=== PATIENT | male | born 1995 | race Caucasian/White ===

== ENCOUNTER 2022-11-01 16:11 | Outpatient (CLI) | payer BC, SELFPAY ==
[2022-11-04 10:21] LABS: Chloride* 104 mmol/L (96-114); Potassium* 4.4 mmol/L (3.6-5.1); Sodium* 143 mmol/L (135-149)
[2022-11-04 10:23] LABS: Cholesterol* 207 mg/dL (90-199)
[2022-11-04 10:24] LABS: Blood Urea Nitrogen* 21 mg/dL (5-24); Calcium* 9.5 mg/dL (8.4-10.6); Carbon Dioxide* 28 mmol/L (20-32); Creatinine* 0.9 mg/dL (0.5-1.5); Estimated Glomerular Filt Rate 120 ml/min; Glucose* 120 mg/dL (60-115); Triglycerides* 208 mg/dL (40-149)
[2022-11-04 10:25] LABS: HDL Cholesterol* 35 mg/dL (>=40); LDL Cholesterol Calculated 130 mg/dL (<100)
== END 2022-11-01 16:12 | disposition home or self-care (01) ==
LOC: NFLDREF 11-04 09:55
PROVIDERS: PCP Family Medicine; Visit Provider Family Medicine
DX: E10.9 Type 1 diabetes mellitus without complications (principal); Z13.6 Encounter for screening for cardiovascular disorders
CPT/HCPCS: 80048; 80061

== ENCOUNTER 2022-11-06 16:45 | Outpatient (CLI) | payer BC, SELFPAY ==
--- NOTE | 2022-11-06 17:00 | CRLHL7_ITS ---
For Patients: As a result of the Century Cures Act, medical imaging exams and procedure reports are released immediately into your electronic medical record. You may view this report before your referring provider. If you have questions, please contact your health care provider. INDICATION: undescended testicle COMPARISON: none TECHNIQUE: More scale imaging was performed of the scrotum. In addition color Doppler and spectral Doppler analysis was performed of the testes. FINDINGS: Left testicle demonstrates normal arterial and venous blood flow on color Doppler and spectral Doppler analysis. There is flow within the right testicle although it is diminished compared to the left testicle. The right testicular is smaller than the left testicle. There is no evidence of a suspicious mass or area of inflammation. The right testis measures 3.5 x 1.4 x 2.4 cm in size and the left testis measures 5.1 x 2.6 x 3.4 cm. The right epididymis is smaller than the normal left epididymis. There is no evidence of a hydrocele or varicocele. IMPRESSION: Undescended right testicle. The right testicle is smaller and has less blood flow compared to the normal left testicle. However, blood flow is present within the right testicle and there is no evidence of torsion. No testicular mass. Dictated by Robel Henderson MD @ 11/07/2022 9:40:22 AM (Electronically Signed)
== END 2022-11-06 16:46 | disposition home or self-care (01) ==
LOC: US 16:46
PROVIDERS: PCP Family Medicine; Visit Provider Family Medicine
DX: Q53.10 Unspecified undescended testicle, unilateral (principal)
CPT/HCPCS: 76870; 93976

== ENCOUNTER 2023-10-17 15:48 | Outpatient (CLI) | payer BC, SELFPAY ==
--- OUTSIDE RECORDS SUMMARY | 2023-10-17 15:53 | XMS_ITS | Clinical Summary ---
Author Name Unknown Organization [facility] Address [address] [place] [address] Care Team Providers Care High School Science Tutor Name Role Phone No Ref-Primary, Physician Primary Care Provider Allergies Active Allergy Reactions Criticality Noted Date Comments Shellfish Allergy 04/26/2016 Other reaction(s): Edema Medications No known medications Social History Tobacco Use Types Packs/Day Years Used Date Smoking Tobacco: Former Smokeless Tobacco: Never Tobacco Cessation:Counseling Given: Yes Sex and Gender Information Value Date Recorded Sex Assigned at Not on file Gender Identity Not on file Sexual Orientation Not on file Last Filed Vital Signs Vital Sign Reading Time Taken Comments Blood Pressure 116/70 04/11/2020 8:59 AM CDT Pulse - - Temperature - - Respiratory Rate - - Oxygen Saturation - - Inhaled Oxygen Concentration - - Weight 105.2 kg (232 lb) 04/11/2020 8:59 AM CDT Height 165.1 cm (5' 5) 04/11/2020 8:59 AM CDT Body Mass Index 38.61 04/11/2020 8:59 AM CDT Plan of Treatment Not on file Care Teams High School Science Tutor Relationship Specialty Start Date End Date No Ref-Primary, Physician PCP - General 04/11/20
--- OUTSIDE RECORDS SUMMARY | 2023-10-17 15:53 | XMS_ITS | Clinical Summary ---
Author Name Unknown Organization [facility] Address [place], [place] [address] Care Team Providers Care Tapping Machine Operator Name Role Phone Pcp, No Primary Care Provider Unavailabl e Allergies Active Allergy Reactions Criticality Noted Date Comments Shellfish Containing Products Edema 2015 Medications Medication Sig Dispensed Refills Start Date End Date Status fluticasone (50 mcg per actuation) nasal solution (FLONASE)Indications :Allergic rhinitis due to pollen, unspecified rhinitis seasonality Inhale 2 Sprays into both nostrils once daily. 1 Bottle 1 01/27/2017 Active Novofine 32 32 gauge x 1/4 1 EACH XX DAILY 0 08/14/2021 Active Dexcom G6 Pay Station Collector for continuous blood glucose monitor (CGM) USE DIRECTED 0 08/31/2021 Active Dexcom G6 Sensor for continuous blood glucose monitor (CGM)Indications:Typ e 1 diabetes mellitus without complications (HC) To be used to read blood sugars, follow manager security directions. 9 Each 0 03/05/2022 Active Dexcom G6 Transmitter for continuous blood glucose monitor (CGM)Indications:Typ e 1 diabetes mellitus without complications (HC) To be used to read blood sugars, follow manager security directions. 1 Each 0 03/05/2022 Active insulin lispro, U-100, (HumaLOG KwikPen Insulin) 100 unit/mL inpn penIndications:Type 1 diabetes mellitus without complications (HC) Inject 1-66 units subcutaneous 3 times daily before meals. Up to 66 units per day for carbohydrate intake. Product desired: HUMALOG KWIKPEN 6 mL 3 03/05/2022 Active Semglee,insulin glarg-yfgn,Pen 100 unit/mL (3 mL) penIndications:Type 1 diabetes mellitus without complications (HC) Inject 24 units subcutaneous before bedtime. 0 03/05/2022 Active Active Problems No known active problems Immunizations Name Administration Dates Next Due Influenza, IIV4 07/31/2016 Tdap 09/29/2015 Social History Tobacco Use Types Packs/Day Years Used Date Smoking Tobacco: Former Cigarettes Q uit: 07/23/2016 Smokeless Tobacco: Former Tobacco Cessation:Ready to Q uit: No; Counseling Given: Yes Comments:1 cigarette per month Alcohol Use Standard Drinks/Week Comments Yes 2 (1 standard drink = 0.6 oz pur e alcohol) occasional PHQ-2 Answer Date Recorded PHQ-2 TOTAL SCORE 0 03/05/2022 Social Connections Answer Date Recorded Frequency of Communication with Friends and Fami ly Not on file 03/05/2022 Sex and Gender Information Value Date Recorded Sex Assigned at Not on file Gender Identity Not on file Sexual Orientation Not on file Obstetrics History Last Filed Vital Signs Vital Sign Reading Time Taken Comments Blood Pressure 112/76 03/05/2022 10:31 AM CDT Pulse 80 03/05/2022 10:31 AM CDT Temperature 36.8 ??C (98.2 ??F) 01/27/2017 5:34 PM CD T Respiratory Rate 20 10/27/2015 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 Oxygen Saturation 99% 03/05/2022 10:31 AM CDT Inhaled Oxygen Concentration - - Weight 94.3 kg (208 lb) 03/05/2022 10:31 AM CDT Height 164.9 cm (5' 4.92) 03/05/2022 10:31 AM C DT Body Mass Index 34.7 03/05/2022 10:31 AM CDT Plan of Treatment Health Maintenance Due Date Last Done Comments COVID-19 vaccine series (#1) 05/14/1995 HIV for age 15-65 2009 Hepatitis C screening for age 18-79 2012 BMI (ht and wt on same day) for age 18+ 03/05/2023 03/05/2022, 09/13/2016, 09/06/2016, Additional history exists Depression screening for age 12+ 03/05/2023 03/05/2022, 09/06/2016 Influenza for age 9-49 05/23/2023 07/31/2016 Tetanus booster 09/29/2025 09/29/2015 Tdap Completed 09/29/2015 Pneumococcal series for age 6-64 Aged Out No longer eligible based on patient's age to complete this topic Care Teams Tapping Machine Operator Relationship Specialty Start Date End Date Pcp, No . PCP - General 07/31/16
--- OUTSIDE RECORDS SUMMARY | 2023-10-17 15:53 | XMS_ITS | Referral Summary ---
Author Name Unknown Organization [facility] Address [address] [place] [id number] Care Team Providers Care Boilers And Pressure Vessels Inspector Name Role Phone No Ref-Primary, Physician Primary [...] of Treatment Not on file Care Teams Boilers And Pressure Vessels Inspector Relationship Specialty Start Date End Date No Ref-Primary, Physician PCP - General 04/11/20
== END 2023-10-17 15:49 | disposition home or self-care (01) ==
PROVIDERS: PCP Family Medicine; Visit Provider Family Medicine
DX: R79.89 Other specified abnormal findings of blood chemistry (principal); E10.9 Type 1 diabetes mellitus without complications; R53.83 Other fatigue; Z79.4 Long term (current) use of insulin
CPT/HCPCS: 80048; 84403; 84443

== ENCOUNTER 2024-03-14 13:42 | Emergency (ER) | payer BC, SELFPAY ==
[2024-03-14 13:46] VITALS: BP 155/81; PULSE 87; RESP 18; TEMP 36.2; O2SAT 98; BMI 36.9
--- NOTE | 2024-03-14 14:19 | ED_ITS ---
HPI - Back Pain/Injury General Chief Complaint: Back Injury/Pain Stated Complaint: back pain Time Seen by Provider: 03/14/24 13:48 History of Present Illness HPI Narrative: This 28-year-old male comes in reporting low back pain over the past month. He has been going to a chiropractor without much relief. He states that he was feeling better several days ago and became more active and now his pain is much worse. He states the pain is localized in his low back and occasionally radia melania down to his right knee. He states that he feels best if he is laying on his side. He does not report any specific injury event or significant strenuous activity that triggered this. He went to urgent care earlier and an x-ray was done with negative results. He comes in here because nothing else was done to help him with his symptoms at that visit. He states that he has taken some Tylenol without any relief. Related Data Home Medications ?Medication ?Instructions ?Recorded ?Confirmed insulin pump cartridge,automated #1 ea 04/01/22 03/14/24 dose,BT with controller subcutaneous (Omnipod 5 G6 Intro Kit (Gen 5) subcutaneous cartridge with controller) Previous Rx's ?Medication ?Instructions ?Recorded blood-glucose transmitter (Dexcom #1 ea 11/01/22 G6 Transmitter device) insulin pump cart,automated,BT #45 ea 05/02/23 (Omnipod 5 G6 Pods (Gen 5) subcutaneous cartridge) insulin lispro 100 unit/mL 70 unit (0.7 mL) subcut QDAY #70 mL 10/09/23 subcutaneous solution (Humalog U-100 Insulin) blood-glucose sensor (Dexcom G6 #9 ea 10/14/23 Sensor device) testosterone 1.62 % (20.25 mg/1.25 1 packet transdermal QDAY #37.5 10/21/23 gram) transdermal gel packet grams insulin lispro 100 unit/mL 70 unit (0.7 mL) subcut QDAY #45 mL 02/10/24 subcutaneous pen (Humalog KwikPen (U-100) Insulin) cyclobenzaprine 10 mg tablet 10 mg PO TID #15 tabs 03/14/24 ketorolac 10 mg tablet 10 mg PO Q8H 5 days #15 tabs 03/14/24 methylprednisolone 4 mg tablets in See Rx Instructions PO .COMPLEX 03/14/24 a dose pack (Medrol (Shaka)) #21 ea Allergies Allergy/AdvReac Type Severity Reaction Status Date / Time No Known Drug Allergies Allergy Verified 03/14/24 13:50 Review of Systems Status of ROS: Reports: 10 or more systems reviewed and unremarkable except as noted in History and below Narrative: Constitutional: No fevers, no weight gain or loss. Eyes: No discharge. No vision changes. HENT: No congestion, no sore throat, no ear pain. Cardiovascular: No chest pain, no palpitations. Respiratory: No shortness of breath, no wheezes, no cough. Gastrointestinal: No abdominal pain, no vomiting, no diarrhea. Genitourinary: No dysuria, no hematuria. Musculoskeletal: Normal range of motion. Low back pain as described above. Skin: No rashes, no pruritis. Neurological: No dizziness, weakness, sensory change, speech change. Endo/Heme/Allergies: No bruising or bleeding. No polydipsia. Pysch: no suicidality, no anxiety, no insomnia. All other systems reviewed and are negative. [facility] Medical History (Updated 03/14/24 @ 14:24 by Mihai Saldana MD) Low serum testosterone level in male ?R79.89 - Other specified abnormal findings of blood chemistry (ICD-10) Undescended right testicle ?Q53.10 - Unspecified undescended testicle, unilateral (ICD-10) Type 1 diabetes mellitus (2020) ?E10.9 - Type 1 diabetes mellitus without complications (ICD-10) Surgical History History of tonsillectomy and adenoidectomy (2001) ?Z90.89 - Acquired absence of other organs (ICD-10) Family History Maternal Grandfather Stroke Heart disease Type 2 diabetes mellitus Social History Narrative: , 3 kids, natural gas pipeline, nonsmoker, social EtOH Smoking Status: Current some day smoker What tobacco products do you use: cigarettes Do you use any of these nicotine containing products: E-Cigarettes Second hand tobacco smoke exposure: No How often do you have a drink containing alcohol: monthly or less AUDIT-C Alcohol total score: 1 Non-prescribed substance use: denies use Little interest or pleasure in doing things: more than half the days Feeling down, depressed, or hopeless: several days Exam Narrative: Exam Narrative: Constitutional: Well-developed, well-nourished, no acute distress. HEENT: Normocephalic, atraumatic. Neck: Normal range of motion. Nontender. Supple. Heart: Intact distal pulses. Lungs: No chest discomfort. No wheezes, rhonchi, or rales. Abdomen: Nontender. Back: Diffuse pain in the low back without any midline tenderness. Extremities: Normal range of motion. No injury. Skin: Intact. No rash. Warm. No erythema or pallor. Neurologic: No altered sensation. No weakness. Alert and oriented. Psychiatric: No suicidality. No anxiety or depression. No insomnia. Nursing notes and vitals signs are reviewed. Const: Vital Signs, click to edit/add: Vital Signs - 24 hr 03/14/24 13:46 Temperature 97.1 F L Pulse Rate [Right Pulse Oximeter] 87 Respiratory Rate 18 Blood Pressure [Ri ght Upper Arm] 155/81 H Pulse Oximetry 98 Oxygen Delivery Me thod Room Air Course Vital Signs Vital signs: Initial Vital Signs Temperature 97.1 F L 03/14/24 13:46 Temperature Source Temporal Artery Scan 03/14/24 13:46 Pulse Rate 87 03/14/24 13:46 Pulse Rhythm Regular 03/14/24 13:46 Respiratory Rate 18 03/14/24 13:46 Blood Pressure 155/81 H 03/14/24 13:46 Blood Pressure Mean 105 03/14/24 13:46 Blood Pressure Position Sitting 03/14/24 13:46 Pulse Oximetry 98 03/14/24 13:46 Oxygen Delivery Method Room Air 03/14/24 13:46 Vital Signs Temperature 97.1 F L 03/14/24 13:46 Pulse Rate 87 03/14/24 13:46 Respiratory Rate 18 03/14/24 13:46 Blood Pressure 155/81 H 03/14/24 13:46 Pulse Oximetry 98 03/14/24 13:46 Oxygen Delivery Method Room Air 03/14/24 13:46 Temperature 97.1 F L 03/14/24 13:46 Pulse Rate 87 06/23/24 13:46 Respiratory Rate 18 03/14/24 13:46 Blood Pressure 155/81 H 03/14/24 13:46 Pulse Oximetry 98 03/14/24 13:46 Oxygen Delivery Method Room Air 03/14/24 13:46 MDM - Back Pain/Injury MDM Narrative Medical decision making narrative: This patient comes in with low back pain as described above. His symptoms are more typical of a myofascial strain. He does report some occasional pain down his right leg but this is not a persistent symptom. He did have an x-ray done earlier today which is negative. IA stated that CT imaging or MRI studies are not indicated at this time but if not improving or certainly if the pain begins persistently down 1 leg or the other he may need an MRI at that time a for more advanced treatment options. Today he received an intramuscular injection of Toradol. I did provide prescriptions also for Toradol, Flexeril, and Medrol Dosepak. Patient is encouraged to follow-up with spine clinic or physical therapy and is encouraged also to increase activity as tolerated. Discharge Plan Discharge Clinical Impression: Strain of lumbar region Patient Disposition: Home, Self-Care Condition: Stable Additional Instructions: Take medication as needed and indicated. Follow-up with spine clinic if not improving. Call [phone] for appointment. Prescriptions: New cyclobenzaprine 10 mg tablet 10 mg PO TID Qty: 15 0RF ketorolac 10 mg tablet 10 mg PO Q8H 5 Days Qty: 15 0RF methylprednisolone [Medrol (Shaka)] 4 mg tablets,dose pack See Rx Instructions .ROUTE .COMPLEX Qty: 21 0RF Rx Instructions: orally per package directions No Action (DME) Omnipod 5 G6 Intro Kit (Gen 5) Cartridge See Rx Instructions .ROUTE .MEDSUPPLY Qty: 1 Rx Instructions: As directed (DME) Dexcom G6 Transmitter Device See Rx Instructions .ROUTE .MEDSUPPLY Qty: 1 3RF Rx Instructions: Q3 months (DME) Omnipod 5 G6 Pods (Gen 5) Cartridge See Rx Instructions .ROUTE .MEDSUPPLY Qty: 45 3RF Rx Instructions: Change every 2 days insulin lispro [Humalog U-100 Insulin] 100 unit/mL solution 70 unit subcut QDAY Qty: 70 1RF Rx Instructions: 70 units daily per insulin pump (DME) Dexcom G6 Sensor Device See Rx Instructions .ROUTE .MEDSUPPLY Qty: 9 0RF Rx Instructions: Q10 days testosterone 1.62 % (20.25 mg/1.25 gram) gel in packet 1 packet transdermal QDAY Qty: 37.5 2RF Rx Instructions: apply to max area of ONE upper arem and shoulder insulin lispro [Humalog KwikPen Insulin] 100 unit/mL insulin pen 70 unit subcut QDAY Qty: 45 0RF Follow Up/Referrals: Robel Montgomery MD [Primary Care Provider] - Stand Alone Forms: MyHealth Info Instructions
[2024-03-14] MEDS: KETOROLAC 30 MG/ML inj IM (14:46)
--- OUTSIDE RECORDS SUMMARY | 2024-03-14 15:11 | XMS_ITS | Clinical Summary ---
Author Organization [facility] Address [address] [place] [id number] Care Team Providers Care Manager Beauty Name Role Phone No Ref-Primary, Physician Primary [...] of Treatment Not on file Care Teams Manager Beauty Relationship Specialty Start Date End Date No Ref-Primary, Physician PCP - General 04/11/20
--- OUTSIDE RECORDS SUMMARY | 2024-03-14 15:11 | XMS_ITS | Referral Summary ---
Author Organization [facility] Address [address] [place] [address] Care Team Providers Care Oil Sprayer Name Role Phone No Ref-Primary, Physician Primary [...] of Treatment Not on file Care Teams Oil Sprayer Relationship Specialty Start Date End Date No Ref-Primary, Physician PCP - General 04/11/20
--- OUTSIDE RECORDS SUMMARY | 2024-03-14 15:11 | XMS_ITS | Clinical Summary ---
Author Organization [facility] Address [place], [place] [address] Care Team Providers Care Assistance Coordinator Name Role Phone Pcp, No Primary Care [...] gauge x 1/4 1 EACH XX DAILY 08/14/2021 Active Dexcom G6 Masseur/Masseuse for continuous blood glucose monitor (CGM) USE DIRECTED 08/31/2021 Active Dexcom G6 Sensor for continuous blood glucose monitor (CGM)Indications:Typ e 1 diabetes mellitus without complications (HC) To be used to read blood sugars, follow mysql developer directions. 9 Each 03/05/2022 Active Dexcom G6 Transmitter for continuous blood glucose monitor (CGM)Indications:Typ e 1 diabetes mellitus without complications (HC) To be used to read blood sugars, follow mysql developer directions. 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 Oxygen Saturation 99% 03/05/2022 10:31 AM CDT Inhaled Oxygen Concentration - - Weight 94.3 kg (208 lb) 03/05/2022 10:31 AM CDT Height 164.9 cm (5' 4.92) 03/05/2022 10:31 AM C DT Body Mass Index 34.7 03/05/2022 10:31 AM CDT Plan of Treatment Health Maintenance Due Date Last Done Comments HIV for age 15-65 2009 Hepatitis C screening for age 18-79 2012 BMI (ht and wt on same day) for age 18+ 03/05/2023 03/05/2022, 09/13/2016, 09/06/2016, Additional history exists Depression screening for age 12+ 03/05/2023 03/05/2022, 09/06/2016 COVID-19 vaccine series ( season) 2023 Influenza for age 9-49 05/23/2024 07/31/2016 Tetanus booster 09/29/2025 09/29/2015 Tdap Completed 09/29/2015 Pneumococcal series for age 6-64 Aged Out No longer eligible based on patient's age to complete this topic Care Teams Assistance Coordinator Relationship Specialty Start Date End Date Pcp, No . PCP - General 07/31/16
== END 2024-03-14 15:31 | disposition home or self-care (01) ==
PROVIDERS: Emergency Provider Emergency Medicine Emergency Medical Services; PCP Family Medicine
DX: S39.012A Strain of muscle, fascia and tendon of lower back, initial encounter (principal)
CPT/HCPCS: 96372; 99283; 99284; J1885

== ENCOUNTER 2024-04-08 15:15 | Outpatient (RCR) | payer BC, SELFPAY ==
--- NOTE | 2024-03-16 13:10 | PT.OPE ---
PT [facility] Outpatient Eval [facility] Outpatient Eval Start: 03/16/24 08:49 Freq: Status: Active Protocol: Document 03/16/24 08:49 ENM (Rec: 03/16/24 11:03 ENM [id number]) E-signed By Esthela Reagan, DPT Physical Therapy Outpatient Evaluation Insurance Information Recert Due Date 06/14/24 Insurance Name Medicaid,Blue Cross/Blue Shield Insurance Information/Comments [place] through work secondary Medical Diagnosis low back pain, unspecified Treating Diagnosis low back pain, right leg pain, difficulty sitting, difficulty walking, impaired posture Referring MD [place] Subjective Subjective Patient presents to PT for evaluation of low back pain. Woke up a month ago with significant pain in their tailbone. Went to the chiropractor which helped some but pains have not gone away. It helped the pain to use a cut out cushion with sitting. This last weekend the pain was very significant 10/10. Sometimes in the morning has to walk very flexed due to pain. Sometimes the pain go up in the back or down the leg. Was given muscle relaxants which have helped some in his ability to walk. Has had to hold most of his weight on the left lately with standing. Xray was negative for significant findings. He denies any changes in bowel or bladder. Denies any pelvic floor issues. No known tailbone injury. When it started: a month ago Describes it as: down the leg is sharp, lower tail bone constant stabbing Timing: gets worse throughout the day depends on amount of sitting Location: tail bone Irritability: mod Severity: mod-high Pain Comments at its best: 5/10 at its worse: 10/10 easing: pillow, chiropractor aggravating: sitting for a while then standing, sometimes walking Current Work Status Production Trainer Occupation [employer] alot of driving, bending over and walking Objective Other/Pertinent Objective Lumbar AROM: FF: mid thigh before significant pain EXT: 25% limited normal pain SB: mid thigh B no pain ROT: 25% limited no pain Painful curve reversal Hip AROM: log roll and passive hip ROM no pain Strength: Hip extensors: L 4/5 R 4-/5 Hip abductors: 4/5 B Hip flexors: 4/5 B Knee extensors: 4/5 B feeling tension into low back B Palpation/joint mobility: Thoracic PA mobilization: stiffness throughout Lumbar PA mobilization: normal + for pain palpating to distal coccyx gait/balance: Posture: Patient tends to sit in a flexed posture. In standing patients lumbar spine rests into increased lordosis Special tests: SLR: slight discomfort in low back on R with sensitization SIJ gapping slight discomfort, compression -, thigh thrust and sacral thrust - hip flexor prone elys mod tightness slump testing: - Assessment Assessment/Impression Patient is a 28 year old male presenting with complaint of low back and sacral pain that started a month ago. 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 He gets the most relief from sitting with a pillow cut out. Xray of lumbar spine was negative for significant findings. Upon assessment patients concordant pains brought on with palpation of coccyx, lumbar flexion, curve reversal and SLR. Patients lumbar spine rests into increased lordosis. He displays moderate hip flexor tightness bilaterally. Notable decrease in glute max strength on right compared to left. SIJ testing was negative for reproduction of symptom with just some discomfort during gapping. Frandy would greatly benefit from skilled PT to address impairments stated above in order to perform all functional mobility, work duties and recreational activities without significant discomfort or difficulty. Primary Functional Limitations walking, sitting, sit to stands Plan of Care Rehabilitation Potential Good Rehabilitation Potential Comments good-fair Physical Therapy Goals In 7-9 visits: 1. Patient will be IND with HEP and self management of symptoms 2. Patient will display pain free lumbar ROM WNL in order to perform self cares/ADLs 3. Patient will be able to get up in the morning and stand without difficulty 4. Patient will be able to sit throughout his work day with 4/10 or less pain during or after to progress toward PLOF 5. Patient will improve right glute max strength to at least 4/5 to better support lumbar spine and SIJ with work duties Coordination/Communication With Referral Source Treatment Plan/Direct Interventions Electrical Stimulation,Gait Training,Ice/Cold/ Vasopneumatic,Joint Mobilization,Manual Therapy, Neuromuscular Re-ed,Self-Care/ Home Management,Therapeutic Activities,Therapeutic Exercises,Traction (Mechanical ) Frequency/Duration 1x a week for 7-9 visits Patient Will Be Discharged From Therapy Completion of LTG(s), Independent w/HEP Evaluation Billing Untimed Code Treatment Minutes 30 Complexity Moderate Certification Information Initial Certification Date 03/16/24 Ending Certification Date 06/14/24 Provider Signature Required Yes Provider Signature Shows Agreement With POC & Medical Necessity Physician NPI Number Write NPI# Here Physician Comment/Change : Physician Signature & Date Requested Please Sign/Date Here
== END 2024-05-27 11:01 | disposition home or self-care (01) ==
PROVIDERS: PCP Family Medicine; Visit Provider Physician Assistant
DX: M54.50 Low back pain, unspecified (principal); Z51.89 Encounter for other specified aftercare
CPT/HCPCS: 97110; 97162

== ENCOUNTER 2024-04-09 07:35 | Outpatient (CLI) | payer BC, SELFPAY ==
--- OUTSIDE RECORDS SUMMARY | 2024-04-12 14:26 | XMS_ITS | Clinical Summary ---
Author Organization [facility] Address [address] [place] [id number] Care Team Providers Care Curator Horticultural Museum Name Role Phone No Ref-Primary, Physician Primary [...] of Treatment Not on file Care Teams Curator Horticultural Museum Relationship Specialty Start Date End Date No Ref-Primary, Physician PCP - General 04/11/20
--- OUTSIDE RECORDS SUMMARY | 2024-04-12 14:26 | XMS_ITS | Clinical Summary ---
Author Organization [email or web address] Address [place], [place] [address] Care Team Providers Care Marketing Senior Recruiter Name Role Phone Pcp, No Primary Care [...] EACH XX DAILY 08/14/2021 Active Dexcom G6 Escrow Manager for continuous blood glucose monitor (CGM) USE DIRECTED 08/31/2021 Active Dexcom G6 Sensor for continuous blood glucose monitor (CGM)Indications:Typ e 1 diabetes mellitus without complications (HC) To be used to read blood sugars, follow circulating process inspector directions. 9 Each 03/05/2022 Active Dexcom G6 Transmitter for continuous blood glucose monitor (CGM)Indications:Typ e 1 diabetes mellitus without complications (HC) To be used to read blood sugars, follow circulating process inspector directions. 1 Each 03/05/2022 Active insulin lispro, [...] T Respiratory Rate 20 10/27/2015 10:04 AM RACING SECRETARY Oxygen Saturation 99% 03/05/2022 10:31 AM CDT [...] age to complete this topic Care Teams Marketing Senior Recruiter Relationship Specialty Start Date End Date Pcp, No . PCP - General 07/31/16
--- OUTSIDE RECORDS SUMMARY | 2024-04-12 14:26 | XMS_ITS | Referral Summary ---
Author Organization [facility] Address [address] [place] [id number] Care Team Providers Care Physical Sciences Professor Name Role Phone No Ref-Primary, Physician Primary [...] of Treatment Not on file Care Teams Physical Sciences Professor Relationship Specialty Start Date End Date No Ref-Primary, Physician PCP - General 04/11/20
== END 2024-04-09 07:36 | disposition home or self-care (01) ==
LOC: NFLDREF 04-12 14:24
PROVIDERS: PCP Family Medicine; Referring Provider Family Medicine; Visit Provider Family Medicine
DX: R79.89 Other specified abnormal findings of blood chemistry (principal); Z13.220 Encounter for screening for lipoid disorders
CPT/HCPCS: 80061; 84403